=== PATIENT | female | born 1980 | race Caucasian/White ===

== ENCOUNTER 2017-02-22 23:36 | Observation (INO) ==
[2017-02-23] MEDS ORDERED: D5% in Lactated Ringers 1,000 ML IVC SCH (01:30)
--- NOTE | 2017-02-23 01:33 | OB/GYN History & Physical ---
Date of Encounter: 02/23/17 Time of Encounter: 01:30 Assessment and Plan (1) Incomplete Current visit: Yes Status: Acute Pt presents with bright red vaginal bleeding and u/s this pm still shows gest sac in uterus. D/w pt options. She states she doesn't want to do anymore cytotec and desires to proceed with suction d&c. Pt aware of operative risks and signed appropriate consent. History of Present Illness Chief complaint: vaginal bleeding HPI: Ms. Oliveira is a 37 year old female female dx'd 1 week ago with missed and she was given Cytotec. She thought she passed tissue last week, but then presented t ER on 02/21 with heavy vaginal bleeding again. Her HGB was 10.1 and she was discharged home after having u/s showing collapsing gestational sac. She presents today again with bright red vaginal bleeding and severe cramps. She denies fever or chills or orthostatic sx's. Past Med Surg Social Fam HX - Past Medical History Source: patient, old records reviewed Medical history: diabetes, GERD, hypertension Psychiatric history: no psych history - Past Surgical History Surgical History: cholecystectomy - Social History Smoking Status: Never smoker Smokeless Tobacco Status: No Alcohol use: none Drug use: none - Family History Father Family Member Ethnicity: Unknown Living Status: Still Living Hx Family Endocrine Disorder: Yes (diabetic) Medications and Allergies Amlodipine [Norvasc] 5 mg PO DAILY 07/29/15 [History] Insulin ASPART [NovoLOG] 2 - 15 unit SQ TIDWM PRN 07/29/15 [History] Metformin HCl [Fortamet] 1,000 mg PO BID 07/29/15 [History] Ranitidine HCl [Zantac] 150 mg PO BID 07/29/15 [History] Insulin DETEMIR [Levemir] 38 unit SQ HS 02/13/17 [History] LORazepam [Ativan] 1 mg PO BID #6 tablet 02/13/17 [Rx] Pnv #78/Iron Asp Gly/FA#1/Dha [Prenate Dha Softgel] 1 each PO 02/13/17 [History] Oxycodone HCl/Acetaminophen [Percocet 5-325 mg Tablet] 1 each PO Q6H #15 tablet 02/21/17 [Rx] Allergies naproxen Allergy (Verified 02/13/17 09:01) Rash Amoxicillin Adverse Reaction (Verified 02/13/17 09:01) Abdominal Pain Exam - Vital Signs Vital signs: Initial Vital Signs Temp Pulse Resp BP Pulse Ox 98.1 F 104 18 151/87 97 02/23/17 00:00 02/23/17 00:00 02/23/17 00:00 02/23/17 00:00 02/23/17 00:00 - Constitutional Constitutional: no acute distress - HEENT HEENT: EOMI, PERRL - Neck Neck exam: full ROM - Lungs Respiratory exam: CTAB - Cardiovascular Cardiovascular exam: RRR - Abdomen Abdomen: Present: bowel sounds normal - Extremities Extremities exam: full ROM Results All other labs normal.
[2017-02-23 02:42] LABS: Hematocrit 27.3 % (35.3-44.9); Hemoglobin 9.4 g/dL (11.5-15.4); Immature Platelets 4.9 % (1.1-6.1); Mean Corpuscular HGB Conc 34.4 g/dL (31.6-35.5); Mean Corpuscular Hemoglobin 29.6 pg (28.0-33.3); Mean Corpuscular Volume 85.8 fL (83.0-100.0); Mean Platelet Volume 10.9 fL (9.4-12.4); Red Blood Count 3.18 M/mcL (3.82-4.97); Red Cell Distribution Width 12.9 % (11.5-14.5)
[2017-02-23] MEDS ORDERED: Insulin LISPRO 300 UNITS/3 ML VIAL SQ STA (03:04)
[2017-02-23] MEDS ORDERED: Insulin LISPRO 300 UNITS/3 ML VIAL SQ ONE (03:07)
[2017-02-23] MEDS ORDERED: *HR* Propofol 200 MG/20 ML VIAL IVP ONE (03:37)
[2017-02-23] MEDS ORDERED: *HR* Midazolam HCl 2 MG/2 ML VIAL ONE (03:37)
[2017-02-23] MEDS ORDERED: *HR* FentaNYL (PF) 100 MCG/2 ML VIAL ONE (03:37)
[2017-02-23] MEDS ORDERED: Lidocaine -MPF 2% 2 ML VIAL ONE (03:38)
[2017-02-23] MEDS ORDERED: *HR* Rocuronium Bromide 50 MG/5 ML VIAL ONE (03:38)
--- NOTE | 2017-02-23 03:51 | Anesthesia Evaluation PreOp ---
Date of Encounter: 02/23/17 Time of Encounter: 03:48 - Past History Planned Operation: Suction D & C Cardiac History: HTN Pulmonary History: Denies Any Significant HX PATIENT OBSERVATION ASSISTANT History: Denies Any Significant HX Other Medical History: Diabetes Type II, GERD Anesthesia History: No Prior Anesthetic Complications, Past Anesthesia Alcohol Use: none Drug use: none Medications and Allergies Amlodipine [Norvasc] 5 mg PO DAILY 07/29/15 [History] Insulin ASPART [NovoLOG] 2 - 15 unit SQ TIDWM PRN 07/29/15 [History] Metformin HCl [Fortamet] 1,000 mg PO BID 07/29/15 [History] Ranitidine HCl [Zantac] 150 mg PO BID 07/29/15 [History] Insulin DETEMIR [Levemir] 38 unit SQ HS 02/13/17 [History] LORazepam [Ativan] 1 mg PO BID #6 tablet 02/13/17 [Rx] Pnv #78/Iron Asp Gly/FA#1/Dha [Prenate Dha Softgel] 1 each PO 02/13/17 [History] Oxycodone HCl/Acetaminophen [Percocet 5-325 mg Tablet] 1 each PO Q6H #15 tablet 02/21/17 [Rx] Allergies naproxen Allergy (Verified 02/13/17 09:01) Rash Amoxicillin Adverse Reaction (Verified 02/13/17 09:01) Abdominal Pain - Meds/Allergy Pre-op Review Medications Reviewed: Yes Allergies Reviewed: Yes Beta Blockers on Current Med List: No Anesthesia Results - Labs 02/23/17 02:28 Anesthesia Exam Vital Signs/O2 Sat, Most Current Temp Pulse Resp BP Pulse Ox 98.6 F 98 20 143/83 97 02/23/17 03:15 02/23/17 03:15 02/23/17 03:15 02/23/17 03:15 02/23/17 03:15 Height: 5'4'' Weight: 231 lbs/105 kg NPO (# of Hours): 8 Pain Scale: 5 Pain Scale Used: Numeric (1 - 10) - HEENT Pupil (Motor): EOMI Mallampati: II Teeth: Normal (chipped upper front tooth) Oral Opening: Greater than 3 - PATIENT OBSERVATION ASSISTANT LOC: Oriented PATIENT OBSERVATION ASSISTANT Motor: Normal RUE, Normal LUE, Normal RLE, Normal LLE, Normal Face PATIENT OBSERVATION ASSISTANT Sensory: Normal: RUE, LUE, RLE, LLE, Face - Cardiac Rhythm: Regular Murmur: None - Pulmonary Breath Sounds: bilateral Clear Respiratory Effort: Symmetrical Anesthesia Assess/Plan ASA Score: 3 Modified Jong Scale for Level of Consciousness: Cooperative, oriented, and tranquil Anesthetic Plan: General Monitoring Plan: Standard Monitors Recovery Plan: PACU
[2017-02-23] MEDS ORDERED: *HR* Morphine 2 MG/ML SYRINGE IVP PRN (03:55)
[2017-02-23] MEDS ORDERED: Methylergonovine 0.2 MG/ML AMPUL IM ONE (04:12)
[2017-02-23] MEDS ORDERED: Clindamycin 900 MG/50 ML 900 MG/50 ML IV.SOLN IVPB ONE (04:12)
[2017-02-23] MEDS ORDERED: Dexamethasone 4 MG/ML VIAL ONE (04:29)
[2017-02-23] MEDS ORDERED: Ondansetron 4 MG/2 ML VIAL ONE (04:29)
[2017-02-23] MEDS ORDERED: *HR* HYDROcodone/Acet 5/325 mg TABLET PO ONE (04:51)
--- NOTE | 2017-02-23 04:55 | OB/GYN Procedure Note ---
OB-KNIT GOODS WASHER: Procedure - Diagnosis Date of procedure: 02/23/17 Pre-op diagnosis: Incomplete Post-op diagnosis: same - Procedure Procedure: Suction D&C Surgeon: Nikolas Rothman Anesthesia Type: General Estimated blood loss (cc): 100 Fluids: crystalloid Procedure Complications: None Specimens collected: Products of Conception Disposition: PACU Findings: Gest sac intact in vagina, placental tissue and clot in uterus Narrative: Patient is a 37-year-old 2 para 1 female 6 weeks gestation diagnosed last week with missed at approximately 6 weeks. She elected to attempt needs approximately induction of . She has had significant bleeding from this week went to the emergency room last evening was diagnosed with mild anemia and collapsing gestational sac. She comes back and this evening with heavy bleeding and severe cramps and requests definitive surgical management. She was were operative risks and signed appropriate consent. Description of procedure: Patient was taken operating room where general anesthesia was administered. She was prepped and draped in usual sterile fashion ". Cervix was visualized and grasped with single-tooth tenaculum. Y did look inside the vagina with the speculum the gestational sac was noted to be intact so that the external cervical os this was grasped and removed intact from forceps. The cervix was already dilated 8 mm suction curet was passed several times to reveal typical placental tissue gentle sharp curettage was performed and uterine cavity was smooth. In gentle curettage performed with minimal residual tissue this point was removed hemostasis was assured patient was awakened taken to recovery in good condition.
--- NOTE | 2017-02-23 04:58 | Discharge Summary ---
Outpatient Proc Discharge Plan - Plan Prescriptions: Ibuprofen [Motrin] 600 mg PO Q6HR PRN #40 tab PRN Reason: post op pain Oxycodone HCl/Acetaminophen [Percocet 5-325 mg Tablet] 1 each PO Q6H PRN #20 tablet PRN Reason: post op pain Home Medications: Amlodipine [Norvasc] 5 mg PO DAILY 07/29/15 [History] Insulin ASPART [NovoLOG] 2 - 15 unit SQ TIDWM PRN 07/29/15 [History] Metformin HCl [Fortamet] 1,000 mg PO BID 07/29/15 [History] Ranitidine HCl [Zantac] 150 mg PO BID 07/29/15 [History] Insulin DETEMIR [Levemir] 38 unit SQ HS 02/13/17 [History] LORazepam [Ativan] 1 mg PO BID #6 tablet 02/13/17 [Rx] Pnv #78/Iron Asp Gly/FA#1/Dha [Prenate Dha Softgel] 1 each PO 02/13/17 [History] Ibuprofen [Motrin] 600 mg PO Q6HR PRN #40 tab 02/23/17 [Rx] Oxycodone HCl/Acetaminophen [Percocet 5-325 mg Tablet] 1 each PO Q6H PRN #20 tablet 02/23/17 [Rx]
[2017-02-23] MEDS ORDERED: Ringers Solution, Lactated 1,000 ML ONE (05:07)
--- NOTE | 2017-02-23 05:24 | Anesthesia Evaluation Post Op ---
Date of Encounter: 02/23/17 Time of Encounter: 05:23 - Vital Signs Vital Signs: Vital Signs/O2 Sat, Most Current Temp Pulse Resp BP Pulse Ox 97.6 F 116 20 154/96 95 02/23/17 04:59 02/23/17 05:19 02/23/17 05:19 02/23/17 05:19 02/23/17 05:19 - Lungs Lungs: Clear Ascult./Percussion - Airway Airway: Non-obstructed - Cardiovascular Regular Rate - Mental Status Mental Status: Alert & Oriented, Answers Appropriately - Pain Pain Scale: 0 Pain Scale used: Numeric (1 - 10) - Nausea Vomiting Nausea Vomiting: Not Present - Hydration Hydration: Ice chips, Has not voided - Discharge PostOp Status: Transfer Patient to floor
[2017-02-23 06:44] VITALS: BP 161/90
== END 2017-02-23 07:15 | disposition home or self-care (01) ==
LOC: 1NENUOBS
PROVIDERS: ADMIT Obstetrics & Gynecology; ATTEND Obstetrics & Gynecology

== ENCOUNTER 2017-07-25 17:42 | Inpatient (IN) ==
--- NOTE | 2017-07-25 18:21 | Emergency Department Note ---
Disposition Clinical Impression: Diverticulitis Qualifiers: Diverticulitis site: large intestine Diverticulitis bleeding: without bleeding Diverticulitis complication: without perforation or abscess Qualified Code(s): K57.32 - Diverticulitis of large intestine without perforation or abscess without bleeding Disposition: Admitted As Inpatient Condition: Fair Referrals: Maria Del Carmen Hernandez MD [Primary Care Provider] - Forms: Work/School Release, ED Satisfaction Letter Abdominal Pain HPI - General Chief Complaint: ED Abdominal Pain Stated Complaint: Abdominal Pain Time Seen by Provider: 07/25/17 17:47 Source: patient, EMS Vital Signs Reviewed: Yes - History of Present Illness HPI Narrative: Patient is a 37-year-old female past medical history of hypertension, diabetes, GERD presented to the ED today after previously being diagnosed yesterday with diverticulitis with new pain on the left side and fever. Patient states that last week she was having low back pain and stomach pain intermittently. Yesterday the pain never went away and she came in to the ED and was diagnosed with diverticulitis. She is sent home with Cipro, Flagyl, Bentyl, Hydrocodeine and Zofran. Patient states she woke up last night in a sweat. She said that when she went to her primary care physician today she had a fever of 100 degrees and they said that she needed to go to the ED today. EMS documented a fever of 100.3F. She states that her pain as an 8 out of 10. It is not aggravated by food. She is not hungry ago and has not eaten anything. Movement does not be changed. Patient states that she cannot get comfortable in one position. Patient has had diffuse weakness, body aches, dizziness, nausea without vomiting. She is not had a bowel movement since yesterday but has been passing gas. Denies melena or hematochezia. Of note she has a diffuse rash on her extremities and trunk the patient has recently changed detergents and believes that is the cause. Pain Scale: 8 - Related Data Home Medications Medication Instructions Recorded Confirmed Amlodipine [Norvasc] 5 mg PO DAILY 07/29/15 08/28/16 Insulin ASPART [NovoLOG] 2 - 15 unit SQ TIDWM PRN 07/29/15 08/28/16 Metformin HCl [Fortamet] 1,000 mg PO BID 07/29/15 08/28/16 Ranitidine HCl [Zantac] 150 mg PO BID 07/29/15 08/28/16 Insulin DETEMIR [Levemir] 38 unit SQ HS 02/13/17 02/13/17 Pnv #78/Iron Asp Gly/FA#1/Dha 1 each PO 02/13/17 [Prenate Dha Softgel] Previous Rx's Medication Instructions Recorded LORazepam [Ativan] 1 mg PO BID #6 tablet 02/13/17 Ibuprofen [Motrin] 600 mg PO Q6HR PRN #40 tab 02/23/17 Oxycodone HCl/Acetaminophen 1 each PO Q6H PRN #20 tablet 02/23/17 [Percocet 5-325 mg Tablet] Ciprofloxacin [Cipro] 500 mg PO BID #14 tablet 07/24/17 Dicyclomine [Bentyl] 10 mg PO QID PRN #40 capsule 07/24/17 HYDROcodone/Acet 5/325 mg [[place] 1 tab PO Q4H PRN #20 tab 07/24/17 5-325 mg] Ondansetron ODT [Zofran ODT] 4 mg SL Q6HR PRN #14 tab.rapdis 07/24/17 metroNIDAZOLE [Flagyl] 500 mg PO TID #21 tablet 07/24/17 Allergies Allergy/AdvReac Type Severity Reaction Status Date / Time naproxen Allergy Rash Verified 02/13/17 09:01 Amoxicillin AdvReac Abdominal Verified 02/13/17 09:01 Pain All systems ED: reviewed and negative except as stated. Review of Systems: As Per HPI Cardiovascular: Denies: chest pain Gastrointestinal: Reports: abdominal pain, nausea. Denies: vomiting, diarrhea, constipation, hematemesis, melena, hematochezia Integumentary: Reports: rash Abdominal Pain PMH - Past Medical History Medical history: Reports: diabetes, GERD, hypertension Female Surgical History: Reports: cholecystectomy, Tonsillectomy HAND HEEL SEAT FITTER history: Reports: no HAND HEEL SEAT FITTER history Psychiatric history: Reports: no psych history - Social History Smoking status: Never smoker Alcohol use: Reports: none Drug use: Reports: none Physical Exam Constitutional: Alert, in no acute distress, well nourished, well developed. Head: Normocephalic, atraumatic, normal contour and symmetric, no masses, lesions or scars EENT: PERRL, EOMI, moist mucous membranes, no exudates or lesions Heart: Normal, regular rate and rhythm, no murmurs Lungs: Clear to auscultation, no wheezes, rales, or rhonchi Abdomen: abdomen is tender left lower and upper quadrant and left flank, Soft, nondistended, and no masses palpable, bowel sounds present and normal, no guarding or rigidity. Extremities: No clubbing, cyanosis, or edema, radial pulse +2/4, capillary refill <2sec. Skin: diffuse maculopapular rash on extremities and trunk, Skin warm and dry,, no jaundice Neurologic: Cranial nerves II through XII grossly intact, no focal deficits, strength within normal limits in all extremities Psych: Cooperative with exam, good eye contact, cognitive function intact, judgment good insight good, speech clear, thought process logical, and goal directed - General General appearance: alert, in no apparent distress Course Course Narrative: CT of the abdomen and pelvis yesterday showed diverticulitis. Patient failed outpatient treatment and now is presenting with new onset of fever and worsening pain on the left side. 1L bolus of NS was given. One dose of Zosyn 3.375mg IV, Dilaudid 1mg, and Zofran 4mg given. Dilaudid decreased pain significantly and Zofran alleviated nausea completely. WBC 11.2 today ( yesterday 12.2), but due to patients worsening symptoms patient admitted to the hospital for IV antibiotics. Crissy Chavez was notified and accepted admission. Vital Signs Temperature 98.3 F 07/25/17 17:43 Pulse Rate 104 07/25/17 17:43 Respiratory Rate 18 07/25/17 17:43 Blood Pressure 165/106 07/25/17 17:43 O2 Sat by Pulse Oximetry 97 07/25/17 17:43 Temperature 98.3 F 07/25/17 17:43 Pulse Rate 104 07/25/17 17:43 Respiratory Rate 18 07/25/17 17:43 Blood Pressure 165/106 07/25/17 17:43 O2 Sat by Pulse Oximetry 97 07/25/17 17:43 Oxygen Delivery Oxygen Delivery Room Air Abdominal Pain - Lab Data Lab results reviewed: Yes I reviewed the patient's lab results. Lab results narrative: All Lab Results (24 Hours) 07/25/17 07/25/17 Range/Units 18:22 18:22 WBC 11.2 H (4.3-11.1) K/mcL RBC 4.81 (3.82-4.97) M/mcL Hgb 11.3 L (11.5-15.4) g/dL Hct 36.2 (35.3-44.9) % MCV 75.3 L (83.0-100.0) fL MCH 23.5 L (28.0-33.3) pg MCHC 31.2 L (31.6-35.5) g/dL RDW 15.7 H (11.5-14.5) % Plt Count 297 (140-400) K/mcL MPV 10.4 (9.4-12.4) fL Immature Gran % 0.4 (0-4) % Seg Neutrophils % 75.0 % Lymphocytes % 14.4 % Monocytes % 9.4 % Eosinophils % 0.5 % Basophils % 0.3 % Neutrophils # 8.4 (1.6-8.9) K/mcL Lymphocytes # 1.6 (0.6-4.6) K/mcL Monocytes # 1.1 (0.0-1.3) K/mcL Eosinophils # 0.1 (0.0-0.6) K/mcL Basophils # 0.0 (0.0-0.2) K/mcL Sodium 136 (136-145) mEq/L Potassium 3.6 (3.5-4.5) mEq/L Chloride 101 (98-109) mEq/L Carbon Dioxide 26 (19-29) mEq/L BUN 8 (7-20) mg/dL Creatinine 0.74 (0.57-1.11) mg/dL Est GFR ( Amer) > 60 (> 60) Est GFR (Non-Af Amer) > 60 (> 60) BUN/Creatinine Ratio 11 (6-26) Glucose 162 H (70-99) mg/dL Calculated Osmolality 284 (280-300) Calcium 9.3 (8.6-10.8) mg/dL Total Bilirubin 0.4 (0.2-1.2) mg/dL AST 20 (5-34) Units/L ALT 25 (0-55) Units/L Alkaline Phosphatase 77 (38-126) Units/L Serum Total Protein 7.5 (6.0-8.3) g/dL Albumin 3.5 (3.5-5.0) g/dL Globulin 4.0 H (2.4-3.5) g/dL Albumin/Globulin Ratio 0.9 L (1.1-2.2) Result diagrams: 07/25/17 18:22 07/25/17 18:22 Lab Results 07/25/17 07/25/17 Range/Units 18:22 18:22 WBC 11.2 H (4.3-11.1) K/mcL RBC 4.81 (3.82-4.97) M/mcL Hgb 11.3 L (11.5-15.4) g/dL Hct 36.2 (35.3-44.9) % MCV 75.3 L (83.0-100.0) fL MCH 23.5 L (28.0-33.3) pg MCHC 31.2 L (31.6-35.5) g/dL RDW 15.7 H (11.5-14.5) % Plt Count 297 (140-400) K/mcL MPV 10.4 (9.4-12.4) fL Immature Gran % 0.4 (0-4) % Seg Neutrophils % 75.0 % Lymphocytes % 14.4 % Monocytes % 9.4 % Eosinophils % 0.5 % Basophils % 0.3 % Neutrophils # 8.4 (1.6-8.9) K/mcL Lymphocytes # 1.6 (0.6-4.6) K/mcL Monocytes # 1.1 (0.0-1.3) K/mcL Eosinophils # 0.1 (0.0-0.6) K/mcL Basophils # 0.0 (0.0-0.2) K/mcL Sodium 136 (136-145) mEq/L Potassium 3.6 (3.5-4.5) mEq/L Chloride 101 (98-109) mEq/L Carbon Dioxide 26 (19-29) mEq/L BUN 8 (7-20) mg/dL Creatinine 0.74 (0.57-1.11) mg/dL Est GFR ( Amer) > 60 (> 60) Est GFR (Non-Af Amer) > 60 (> 60) BUN/Creatinine Ratio 11 (6-26) Glucose 162 H (70-99) mg/dL Calculated Osmolality 284 (280-300) Calcium 9.3 (8.6-10.8) mg/dL Total Bilirubin 0.4 (0.2-1.2) mg/dL AST 20 (5-34) Units/L ALT 25 (0-55) Units/L Alkaline Phosphatase 77 (38-126) Units/L Serum Total Protein 7.5 (6.0-8.3) g/dL Albumin 3.5 (3.5-5.0) g/dL Globulin 4.0 H (2.4-3.5) g/dL Albumin/Globulin Ratio 0.9 L (1.1-2.2) Attestation Statement - Attestation Attestation: I examined this patient and my medical decision-making was reviewed with the Resident Physician. I agree with the documented findings, disposition and treatment plan as described except to the extent set forth below. I had face-to- face time with the patient. This is a 37-year-old diabetic who came in with left lower quadrant pain yesterday. CT scan shows acute diverticular disease. Patient states today her pain has gotten significantly worse with fevers. Physical examination she had tenderness left lower quadrant without guarding or rebound. White count today is actually somewhat better however her symptoms are worse and she has running a fever now. We will admit her for IV antibiotics. Consultation obtained with the hospitalist.
[2017-07-25] MEDS ORDERED: Piperacillin/Tazobactam 3.375 GM in D5% in Water (Mini-Bag+) 100 ML IVPB ONE (18:24)
[2017-07-25] MEDS ORDERED: 0.9 % Sodium Chloride 1,000 ML IVC ONE (18:24)
[2017-07-25 18:33] LABS: Basophils % 0.3 %; Eosinophils # 0.1 K/mcL (0.0-0.6); Eosinophils % 0.5 %; Hematocrit 36.2 % (35.3-44.9); Hemoglobin 11.3 g/dL (11.5-15.4); Immature Granulocytes % 0.4 % (0-4); Lymphocytes # 1.6 K/mcL (0.6-4.6); Lymphocytes % 14.4 %; Mean Corpuscular HGB Conc 31.2 g/dL (31.6-35.5); Mean Corpuscular Hemoglobin 23.5 pg (28.0-33.3); Mean Corpuscular Volume 75.3 fL (83.0-100.0); Mean Platelet Volume 10.4 fL (9.4-12.4); Monocytes # 1.1 K/mcL (0.0-1.3); Monocytes % 9.4 %; Neutrophils # 8.4 K/mcL (1.6-8.9); Platelet Count 297 K/mcL (140-400); Red Blood Count 4.81 M/mcL (3.82-4.97); Red Cell Distribution Width 15.7 % (11.5-14.5)
[2017-07-25] MEDS ORDERED: Ondansetron 4 MG/2 ML VIAL IVP PRN ×2 (18:36→19:29)
[2017-07-25] MEDS ORDERED: *HR* HYDROmorphone (PF) 1 MG/ML SYRINGE IVP ONE (18:36)
[2017-07-25 18:46] LABS: Alanine Aminotransferase 25 Units/L (0-55); Albumin 3.5 g/dL (3.5-5.0); Albumin/Globulin Ratio 0.9 (1.1-2.2); Alkaline Phosphatase 77 Units/L (38-126); Aspartate Amino Transferase 20 Units/L (5-34); BUN/Creatinine Ratio 11 (6-26); Bilirubin,Total 0.4 mg/dL (0.2-1.2); Blood Urea Nitrogen 8 mg/dL (7-20); Calcium 9.3 mg/dL (8.6-10.8); Carbon Dioxide 26 mEq/L (19-29); Chloride 101 mEq/L (98-109); Glucose 162 mg/dL (70-99); Osmolality,Calculated 284 (280-300); Potassium 3.6 mEq/L (3.5-4.5); Sodium 136 mEq/L (136-145); Total Protein 7.5 g/dL (6.0-8.3); eGFR For African Americans > 60 (> 60); eGFR For Non-African Americans > 60 (> 60)
[2017-07-25] MEDS ORDERED: Dextrose Gel 15 GM PO PRN (19:33)
[2017-07-25] MEDS ORDERED: D5% in Water 1,000 ML IVC PRN (19:33)
[2017-07-25] MEDS ORDERED: *HR* Dextrose 50 % in Water (Syg) 50 ML SYRINGE IVP PRN (19:33)
--- NOTE | 2017-07-25 19:50 | Internal Med History&Physical ---
<Crissy Chavez - Last Filed: 07/25/17 22:05> Date of Encounter: 07/25/17 Time of Encounter: 19:45 Assessment and Plan (1) Diverticulitis Current visit: Yes Status: Acute 1 1 patient was seen yesterday in the emergency department for abdominal pain. She was diagnosed with diverticulitis and was discharged home from [facility] and Flagyl, hydrocodone then told and Zofran. Overnight the patient continued to have abdominal pain as well as nausea she experienced fevers and chills. She resumed her primary care physician attention at temperature of 100. LFTs are negative lipase within normal limits Her white count is down to 11.2. Oral medications have been stopped. We will continue with IV Zosyn. 2 IV Zofran for nausea 3 we will continue with IV fluids overnight 4. Nothing by mouth for now and advance to clear liquids as tolerated 5 dilaudid as needed for pain Qualifiers: Diverticulitis site: large intestine Diverticulitis bleeding: without bleeding Diverticulitis complication: without perforation or abscess Qualified Code(s): K57.32 - Diverticulitis of large intestine without perforation or abscess without bleeding (2) HTN (hypertension) Current visit: No Status: Chronic 1 hydralazine as needed IV for hypertension. Once tolerating clear liquids we will resume oral medications Qualifiers: Hypertension type: essential hypertension Qualified Code(s): I10 - Essential (primary) hypertension (3) Diabetes Current visit: No Status: Chronic 1 accucheck every 6 hours while nothing by mouth give half of her Basal and add sliding scale insulin 2 we will hold oral medications for now and resume upon discharge Qualifiers: Diabetes mellitus type: type 2 Diabetes mellitus complication status: without complication Diabetes mellitus care home insulin use: with care home use Qualified Code(s): E11.9 - Type 2 diabetes mellitus without complications ; 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 Oliveira is a 37 year old female past medical history of hypertension diabetes GERD. Patient [facility] yesterday with complaints of abdominal pain. Abdominal workup was completed and CT did reveal some diverticulitis. She was sent home with Cipro Flagyl Bentyl hydrocodone and Zofran. She did wake last night and was experiencing chills and diaphoresis. She continued to experience sharp abdominal pain radiating across her lower abdomen to her left side as well as low back pain. She has been nauseated however she denies any vomiting diarrhea melena hematochezia. She has been passing gas but she has not had a bowel movement since yesterday. Of note she has a diffuse rash on her extremities and trunk which she attributes to recent change in her laundry detergent. She followed up with her primary care physician today she did have a low-grade temperature fever of 100.3. She was advised to go to emergency department for evaluation. In the ER lab work did reveal a day after meals of 11.2 which was down from yesterday. Rest of lab work was unremarkable. She was afebrile and slightly hypertensive. She was given IV fluids pain medication and Zosyn. She has been admitted for further workup evaluation. Presently patient is complaining of cramp-like abdominal pain across her abdomen to her left flank. She does have slight diffuse tenderness across abdomen palpation. Abdomen is not distended She denies any chest pain shortness of breath at this time. Her lung sounds are clear heart sounds are regular S1 and S2 with no rubs clicks, murmurs noted history of pedal edema. She is hemodynamically stable at this time. Reviewed his case with Dr Schmidt who agrees with plan. Past Med Surg Social Fam HX - Past Medical History Medical history: diabetes, GERD, hypertension Psychiatric history: no psych history - Past Surgical History Surgical History: cholecystectomy - Social History Smoking Status: Never smoker Smokeless Tobacco Status: No Alcohol use: none Drug use: none - Family History Father Family Member Ethnicity: Unknown Living Status: Still Living Hx Family Endocrine Disorder: Yes (diabetic) Internal Medicine - H&P: Meds Amlodipine [Norvasc] 5 mg PO DAILY 07/29/15 [History] Insulin ASPART [NovoLOG] 10 unit SQ TIDAC 07/29/15 [History] Metformin HCl [Fortamet] 2,000 mg PO QPM 07/29/15 [History] Ranitidine HCl [Zantac] 150 mg PO BID 07/29/15 [History] Insulin DETEMIR [Levemir] 40 unit SQ HS 02/13/17 [History] Ciprofloxacin [Cipro] 500 mg PO BID #14 tablet 07/24/17 [Rx] Dicyclomine [Bentyl] 10 mg PO QID PRN #40 capsule 07/24/17 [Rx] HYDROcodone/Acet 5/325 mg [[place] 5-325 mg] 1 tab PO Q4H PRN #20 tab 07/24/17 [Rx ] Ondansetron ODT [Zofran ODT] 4 mg SL Q6HR PRN #14 tab.rapdis 07/24/17 [Rx] metroNIDAZOLE [Flagyl] 500 mg PO TID #21 tablet 07/24/17 [Rx] 3 Allergy/AdvReac Type Severity Reaction Status Date / Time naproxen Allergy Rash Verified 02/13/17 09:01 Amoxicillin AdvReac Abdominal Verified 02/13/17 09:01 Pain All Systems PM: A 10-system review of systems was performed and is negative for pertinent findings except as documented above in the HPI. - Constitutional Constitutional: no chills, no fever(s), no night sweats - EENT Eyes: no change in vision, no discharge, no pain, no photophobia Ears: no ear discharge, no ear pain, no tinnitus Nose, mouth and throat: no dysphagia, no nasal discharge, no neck pain, no sore throat - Cardiovascular Cardiovascular ROS IM: no chest pain, no diaphoresis, no dyspnea, no lightheadedness, no palpitations, no syncope - Respiratory Respiratory: no cough, no dyspnea, no wheezing, no excessive phlegm production - Gastrointestinal Gastrointestinal: abdominal pain, nausea, no diarrhea, no hematemesis, no hematochezia, no melena, no vomiting - Genitourinary Genitourinary: no change in urinary stream, no dysuria, no flank pain, no hematuria - Musculoskeletal Musculoskeletal ROS IM: no numbness, no tingling - Integumentary Integumentary IM: rash - Neurological Neurological ROS: no confusion, no convulsions, no focal weakness, no numbness, no tingling, no tremor(s) - Hematologic/Lymphatic Hematologic/Lymphatic: no easy bruising - Constitutional Vitals: Temp Pulse Resp BP Pulse Ox 98.3 F 104 18 165/106 97 07/25/17 17:43 07/25/17 17:43 07/25/17 17:43 07/25/17 17:43 07/25/17 17:43 General appearance: Present: A&O X 3, obese, answers questions appropriately - Head Head exam: Present: atraumatic, normocephalic - Eye Eye exam: Present: PERRL, conjuntiva pink, sclera anicteric - Neck Neck exam general surgery: Present: supple, trachea midline. Absent: lymphadenopathy - Respiratory Respiratory exam: Present: CTAB. Absent: accessory muscle use, rales, rhonchi, wheezes - Cardiovascular Cardiovascular exam: Present: RRR, +S1, +S2. Absent: diastolic murmur, gallop, rubs, systolic murmur - GI/Abdominal GI/Abdominal exam: Present: normal bowel sounds, soft, tenderness, no peritoneal signs. Absent: distended - Extremities Exam Extremities exam: Present: warm, radial pulses palpable and symmetrical. Absent : calf tenderness, cyanotic, pedal edema - Neurological Exam Neurological exam: Present: CN II-XII intact, oriented X3, no focal deficits. Absent: pronater drift, facial droop, speech deficit - Skin Skin exam: Present: dry, intact Internal Med - H&P Results - Labs CBC & Chem 7: 07/25/17 18:22 07/25/17 18:22 Labs: Short CBC 07/25/17 Range/Units 18:22 WBC 11.2 H (4.3-11.1) K/mcL Hgb 11.3 L (11.5-15.4) g/dL Hct 36.2 (35.3-44.9) % Plt Count 297 (140-400) K/mcL Neutrophils # 8.4 (1.6-8.9) K/mcL BMP 07/25/17 18:22 Sodium 136 Potassium 3.6 Chloride 101 Carbon Dioxide 26 BUN 8 Creatinine 0.74 Glucose 162 H Calcium 9.3 Liver Function 07/25/17 Range/Units 18:22 Total Bilirubin 0.4 (0.2-1.2) mg/dL AST 20 (5-34) Units/L ALT 25 (0-55) Units/L Alkaline Phosphatase 77 (38-126) Units/L Albumin 3.5 (3.5-5.0) g/dL <Bertram Schmidt - Last Filed: 07/25/17 23:27> Date of Encounter: 07/25/17 Internal Medicine - H&P: HPI History of present illness: Ms. Oliveira is a 37 year old female All Systems PM: A 10-system review of systems was performed and is negative for pertinent findings except as documented above in the HPI. - Constitutional Vitals: Temp Pulse Resp BP Pulse Ox 98.6 F 91 16 144/81 96 07/25/17 21:27 07/25/17 21:27 07/25/17 21:27 07/25/17 21:27 07/25/17 21:27 Internal Med - H&P Results - Labs CBC & Chem 7: 07/25/17 18:22 07/25/17 18:22 - Attending Attestation I independently obtained history and examined this patient and my medical decision-making was reviewed with the nurse practitioner, Crissy Chavez. I agree with the documented findings, disposition and treatment plan as described. My findings are summarized below: Patient presented to the hospital with abdominal pain, nausea and decreased oral intake. She was recently diagnosed with diverticulitis. She started treatment with oral antibiotics outpatient however her symptoms worsened. On exam she is in no acute distress. Abdomen is soft tender to deep palpation in left lower quadrant and right lower quadrant. Plan: We will admit the patient and treat her for diverticulitis with IV Zosyn IV fluids and pain control. She is at high risk for morbidity, mortality and complications to to treatment with IV controlled substances.
[2017-07-25] MEDS ORDERED: NON-FORMULARY MEDICATION 1 EACH EACH (Insulin Detemir 20 UNIT) SQ SCH (22:00)
[2017-07-25] MEDS: 0.9 % Sodium Chloride 1,000 ML IVC SCH (22:01)
[2017-07-25] MEDS: Insulin DETEMIR 100 UNIT/ML X5UNITS SQ SCH (22:52)
[2017-07-25] MEDS ORDERED: Naloxone 0.4 MG/ML INJ IVP PRN (23:00)
[2017-07-26] MEDS: Insulin LISPRO 300 UNITS/3 ML VIAL SQ SCH ×4 (01:04→18:23)
[2017-07-26] MEDS: *HR* HYDROmorphone (PF) 1 MG/ML SYRINGE IVP PRN ×3 (01:08→21:58)
[2017-07-26 05:03] LABS: Basophils % 0.4 %; Eosinophils # 0.1 K/mcL (0.0-0.6); Hematocrit 32.5 % (35.3-44.9); Hemoglobin 9.8 g/dL (11.5-15.4); Immature Granulocytes % 0.5 % (0-4); Lymphocytes # 1.7 K/mcL (0.6-4.6); Lymphocytes % 20.4 %; Mean Corpuscular HGB Conc 30.2 g/dL (31.6-35.5); Mean Corpuscular Hemoglobin 23.1 pg (28.0-33.3); Mean Corpuscular Volume 76.7 fL (83.0-100.0); Monocytes # 0.7 K/mcL (0.0-1.3); Neutrophils # 5.7 K/mcL (1.6-8.9); Platelet Count 271 K/mcL (140-400); Red Blood Count 4.24 M/mcL (3.82-4.97); Red Cell Distribution Width 15.8 % (11.5-14.5); Segmented Neutrophils % 69.7 %
[2017-07-26 05:15] LABS: BUN/Creatinine Ratio 10 (6-26); Blood Urea Nitrogen 7 mg/dL (7-20); Calcium 8.4 mg/dL (8.6-10.8); Carbon Dioxide 26 mEq/L (19-29); Chloride 103 mEq/L (98-109); Glucose 144 mg/dL (70-99); Magnesium 1.9 mg/dL (1.6-2.6); Osmolality,Calculated 283 (280-300); Potassium 3.7 mEq/L (3.5-4.5); eGFR For African Americans > 60 (> 60); eGFR For Non-African Americans > 60 (> 60)
[2017-07-26 05:16] LABS: Sodium 136 mEq/L (136-145)
[2017-07-26] MEDS: Piperacillin/Tazobactam 3.375 GM in D5% in Water (Mini-Bag+) 100 ML IVPB SCH ×3 (06:03→18:19)
[2017-07-26] MEDS: *HR* Enoxaparin 40 MG/0.4 ML SYRINGE SQ SCH (06:04)
[2017-07-26] MEDS: 0.9 % Sodium Chloride 1,000 ML IVC SCH (07:53)
--- NOTE | 2017-07-26 14:58 | Internal Med Progress Note ---
Date of Encounter: 07/26/17 Time of Encounter: 08:10 - Assessment and plan (1) Diverticulitis Current Visit: Yes Status: Acute Assessment and plan: Patient with acute diverticulitis involving the descending colon. Improving clinically. Will start patient on clear liquids and advance diet as tolerated. Continue IV antibiotics. She does remain at risk for complications including perforation and abscess formation. Monitor vital signs closely. Qualifiers: Diverticulitis site: large intestine Diverticulitis bleeding: without bleeding Diverticulitis complication: without perforation or abscess Qualified Code(s): K57.32 - Diverticulitis of large intestine without perforation or abscess without bleeding (2) Diabetes Current Visit: Yes Status: Chronic Assessment and plan: Blood sugars are elevated today. 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 Qualifiers: Hypertension type: essential hypertension Qualified Code(s): I10 - Essential (primary) hypertension (4) DVT prophylaxis Current Visit: Yes Status: Acute Assessment and plan: On subcutaneous Lovenox - Subjective Interval history: Patient continues to have lower abdominal pain but improving compared to yesterday. No longer having any nausea or vomiting. No diarrhea. No hematemesis or melena/hematochezia. No fever reported. - Constitutional Vitals: Temp Pulse Resp BP Pulse Ox 98 F 82 15 120/76 97 07/26/17 11:21 07/26/17 11:21 07/26/17 11:21 07/26/17 11:21 07/26/17 11:21 General appearance: Present: A&O X 3, obese, answers questions appropriately - Neck Neck exam general surgery: Present: supple, trachea midline. Absent: lymphadenopathy - Respiratory Respiratory exam: Present: CTAB. Absent: accessory muscle use, rales, rhonchi, wheezes - Cardiovascular Cardiovascular exam: Present: RRR, +S1, +S2. Absent: diastolic murmur, gallop, rubs, systolic murmur - GI/Abdominal GI/Abdominal exam: Present: normal bowel sounds, soft, tenderness (Lower abdominal), no peritoneal signs. Absent: distended - Extremities Exam Extremities exam: Present: warm, radial pulses palpable and symmetrical. Absent : calf tenderness, cyanotic, pedal edema Internal Medicine: Result - Labs CBC & Chem 7: 07/26/17 04:19 07/26/17 04:19 Labs: Short CBC 07/26/17 Range/Units 04:19 WBC 8.2 (4.3-11.1) K/mcL Hgb 9.8 L D (11.5-15.4) g/dL Hct 32.5 L (35.3-44.9) % Plt Count 271 (140-400) K/mcL Neutrophils # 5.7 (1.6-8.9) K/mcL BMP 07/26/17 04:19 Sodium 136 Potassium 3.7 Chloride 103 Carbon Dioxide 26 BUN 7 Creatinine 0.71 Glucose 144 H Calcium 8.4 L Consult Discharge Plan - Plan Referrals: Maria Del Carmen Hernandez MD [Primary Care Provider] -
[2017-07-26] MEDS: Insulin DETEMIR 100 UNIT/ML X5UNITS SQ SCH (21:47)
[2017-07-26] MEDS: Famotidine 20 MG TABLET PO SCH (21:47)
[2017-07-27] MEDS: Piperacillin/Tazobactam 3.375 GM in D5% in Water (Mini-Bag+) 100 ML IVPB SCH ×2 (00:28→08:02)
[2017-07-27] MEDS: *HR* Enoxaparin 40 MG/0.4 ML SYRINGE SQ SCH (06:29)
[2017-07-27 07:38] VITALS: BP 121/80
[2017-07-27] MEDS: Famotidine 20 MG TABLET PO SCH (08:01)
[2017-07-27] MEDS: Insulin LISPRO 300 UNITS/3 ML VIAL SQ SCH (08:03)
[2017-07-27] MEDS ORDERED: *HR* HYDROcodone/Acet 5/325 mg TABLET PO PRN (08:06)
--- NOTE | 2017-07-27 10:36 | Discharge Summary ---
Date of Encounter: 07/27/17 Time of Encounter: 08:20 - Discharge Diagnosis (1) Diverticulitis Priority: Primary Status: Acute Qualifiers: Diverticulitis site: large intestine Diverticulitis bleeding: without bleeding Diverticulitis complication: without perforation or abscess Qualified Code(s): K57.32 - Diverticulitis of large intestine without perforation or abscess without bleeding (2) Diabetes Priority: Secondary Status: Chronic Qualifiers: Diabetes mellitus type: type 2 Diabetes mellitus complication status: without complication Diabetes mellitus correction insulin use: with correction use Qualified Code(s): E11.9 - Type 2 diabetes mellitus without complications ; 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 of 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 (3) HTN (hypertension) Priority: Secondary Status: Chronic Qualifiers: Hypertension type: essential hypertension Qualified Code(s): I10 - Essential (primary) hypertension (4) DVT prophylaxis Priority: Secondary Status: Acute - Discharge Medications Home Medications: Amlodipine [Norvasc] 5 mg PO DAILY 07/29/15 [History] Insulin ASPART [NovoLOG] 10 unit SQ TIDAC 07/29/15 [History] Metformin HCl [Fortamet] 2,000 mg PO QPM 07/29/15 [History] Ranitidine HCl [Zantac] 150 mg PO BID 07/29/15 [History] Insulin DETEMIR [Levemir] 40 unit SQ HS 02/13/17 [History] Ciprofloxacin [Cipro] 500 mg PO BID #14 tablet 07/24/17 [Rx] Dicyclomine [Bentyl] 10 mg PO QID PRN #40 capsule 07/24/17 [Rx] HYDROcodone/Acet 5/325 mg [[place] 5-325 mg] 1 tab PO Q4H PRN #20 tab 07/24/17 [Rx ] Ondansetron ODT [Zofran ODT] 4 mg SL Q6HR PRN #14 tab.rapdis 07/24/17 [Rx] metroNIDAZOLE [Flagyl] 500 mg PO TID #21 tablet 07/24/17 [Rx] Allergies/Adverse Reactions: 3 Allergy/AdvReac Type Severity Reaction Status Date / Time naproxen Allergy Rash Verified 02/13/17 09:01 Amoxicillin AdvReac Abdominal Verified 02/13/17 09:01 Pain Date of admission: 07/25/17 20:06 Primary care physician: Maria Del Carmen Hernandez MD Discharging clinician: Mayur Garcia Anticipated date of discharge: 07/27/17 - Patient Status Disposition: Home, Self-Care Condition: Good Functional capacity at discharge: independent ambulation Overall status at discharge: patient is progressing back to baseline - Discharge Instructions Instructions: Diverticulitis (DC) Follow Up With: Maria Del Carmen Hernandez MD [Primary Care Provider] - (Your appt has been web requested. The office will call you on Saturday to make an appt. Please call them if they do not call you.) Additional Instructions: Please follow up on referral made for colonoscopy in 2-3 weeks - Diet and Activity Activity: increase activity as tolerated Diet: diabetic diet, low fat, low cholesterol, low salt diet Hospital course: Ms. Oliveira is a 37 year old female patient was admitted here with acute diverticulitis. She had been started on treatment as outpatient but her symptoms continued to worsen and so she was admitted here. She was kept nothing by mouth and treated with intravenous antibiotics. She improved quickly with this treatment plan and is now tolerating diet well. Her pain has significantly improved since admission. She is no longer having any nausea or vomiting. She is clinically stable to be discharged home and will follow up with her primary care provider. She is also advised to follow-up with gastroenterology for colonoscopy as outpatient as this is her second bout of diverticulitis. She will complete antibiotic course with ciprofloxacin and Flagyl. - Time Spent with Patient Total time spent providing and/or coordinating discharge services: Less than 30 minutes (20 min) - Constitutional Vitals: Temp Pulse Resp BP Pulse Ox 98.5 F 77 16 121/80 98 07/27/17 07:35 07/27/17 07:35 07/27/17 07:35 07/27/17 07:35 07/27/17 08:16 General appearance: Present: A&O X 3, obese, answers questions appropriately - Cardiovascular Cardiovascular exam: Present: RRR, +S1, +S2. Absent: diastolic murmur, gallop, rubs, systolic murmur - GI/Abdominal GI/Abdominal exam: Present: normal bowel sounds, soft, tenderness (in lower abdominal quadrants), no peritoneal signs. Absent: distended - Extremities Exam Extremities exam: Present: warm, radial pulses palpable and symmetrical. Absent : calf tenderness, cyanotic, pedal edema - Neurological Exam Neurological exam: Present: alert, oriented X3, no focal deficits. Absent: facial droop, speech deficit - Skin Skin exam: Present: dry, intact
== END 2017-07-27 11:55 | disposition home or self-care (01) | DRG 244 ==
LOC: 3BNU 17:42 → EMEROO 17:42 → SUATTDRO 20:06 → 3BNU 21:05
PROVIDERS: ADMIT Internal Medicine Hematology & Oncology; ATTEND Internal Medicine

== ENCOUNTER 2018-01-04 20:58 | Inpatient (IN) ==
[2018-01-04] MEDS ORDERED: Ondansetron 4 MG/2 ML VIAL IVP ONE (21:15)
[2018-01-04] MEDS ORDERED: 0.9 % Sodium Chloride 1,000 ML IVC ONE (21:15)
--- NOTE | 2018-01-04 21:20 | Emergency Department Note ---
Disposition Clinical Impression: Diverticulitis Disposition: Admitted As Inpatient Condition: Good Referrals: Maria Del Carmen Hernandez MD [Primary Care Provider] - Forms: ED Satisfaction Letter, Work/School Release Abdominal Pain HPI - General Chief Complaint: ED Abdominal Pain Stated Complaint: lower back pain Time Seen by Provider: 01/04/18 21:04 Source: patient Mode of arrival: ambulatory Limitations: no limitations Nursing Notes Reviewed: Yes Vital Signs Reviewed: Yes - History of Present Illness HPI Narrative: Patient presents today for evaluation of left lower quadrant abdominal pain that radiates to her back area and similar to previous diverticulitis episodes. Patient states symptoms started approximately 3 days ago with intermittent pain and loss of appetite. Today the patient had nausea and decreased appetite and decreased ability to tolerate fluids. Patient states she has had associated constipation but has not noticed any blood within her stool. Pain Scale: 8 - Related Data Home Medications Medication Instructions Recorded Confirmed Amlodipine [Norvasc] 5 mg PO DAILY 07/29/15 07/25/17 Insulin ASPART [NovoLOG] 10 unit SQ TIDAC 07/29/15 07/25/17 Metformin HCl [Fortamet] 2,000 mg PO QPM 07/29/15 07/25/17 Ranitidine HCl [Zantac] 150 mg PO BID 07/29/15 07/25/17 Insulin DETEMIR [Levemir] 40 unit SQ HS 02/13/17 07/25/17 Previous Rx's Medication Instructions Recorded Ciprofloxacin [Cipro] 500 mg PO BID #14 tablet 07/24/17 Dicyclomine [Bentyl] 10 mg PO QID PRN #40 capsule 07/24/17 HYDROcodone/Acet 5/325 mg [[place] 1 tab PO Q4H PRN #20 tab 07/24/17 5-325 mg] Ondansetron ODT [Zofran ODT] 4 mg SL Q6HR PRN #14 tab.rapdis 07/24/17 metroNIDAZOLE [Flagyl] 500 mg PO TID #21 tablet 07/24/17 HYDROcodone/Acet 5/325 mg [[place] 1 tab PO Q4H PRN #12 tab 11/17/17 5-325 mg] Ondansetron ODT [Zofran ODT] 4 mg SL Q6HR #12 tab.rapdis 11/17/17 Allergies Allergy/AdvReac Type Severity Reaction Status Date / Time cefdinir Allergy Rash Verified 11/17/17 13:39 naproxen Allergy Rash Verified 11/15/17 16:01 Amoxicillin AdvReac Abdominal Verified 11/15/17 16:01 Pain All systems ED: reviewed and negative except as stated. Constitutional: Denies: fever, chills, weakness Cardiovascular: Denies: chest pain, palpitations, dyspnea on exertion Respiratory: Denies: cough, dyspnea, wheezes Gastrointestinal: Reports: abdominal pain, nausea, constipation. 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 nondistended; no guarding, rebound, or tenderness to percussion; no CVA tenderness Musculoskeletal: Calves symmetric, nontender, no palpable cord Skin: No rash, normal skin tone Neuro: Alert and Oriented to person, place, and time; No focal deficit, CN 2-12 symmetric and intact - General Limitations: no limitations General appearance: alert, in no apparent distress Course - Reevaluation(s) Reevaluation #1: Patient with elevated white count. Uncomplicated diverticulitis. Patient unable to tolerate by mouth challenge. Patient did have previous diverticulitis with outpatient management that failed therapy and required inpatient admission. Patient will be brought in for antibiotics and further management. - Consultations Consultation #1: Discussed with hospitalist, Dr. Rudolph. Patient accepted for admission. Requests blood cultures. Vital Signs Temperature 98.1 F 01/04/18 20:59 Pulse Rate 107 01/04/18 20:59 Respiratory Rate 20 01/04/18 20:59 Blood Pressure 176/124 01/04/18 20:59 O2 Sat by Pulse Oximetry 99 01/04/18 20:59 Temperature 98.1 F 01/04/18 20:59 Pulse Rate 107 01/04/18 20:59 Respiratory Rate 20 01/04/18 20:59 Blood Pressure 176/124 01/04/18 20:59 O2 Sat by Pulse Oximetry 99 01/04/18 20:59 Oxygen Delivery Oxygen Delivery Room Air Abdominal Pain - Lab Data Result diagrams: 01/04/18 21:30 01/04/18 21:30 Lab Results 01/04/18 01/04/18 01/04/18 Range/Units 21:20 21:20 21:30 WBC 18.3 H (4.3-11.1) K/mcL RBC 4.93 (3.82-4.97) M/mcL Hgb 11.8 (11.5-15.4) g/dL Hct 37.1 (35.3-44.9) % MCV 75.3 L (83.0-100.0) fL MCH 23.9 L (28.0-33.3) pg MCHC 31.8 (31.6-35.5) g/dL RDW 15.4 H (11.5-14.5) % Plt Count 336 (140-400) K/mcL MPV 10.6 (9.4-12.4) fL Immature Gran % 0.3 (0-4) % Seg Neutrophils % 80.2 % Lymphocytes % 10.9 % Monocytes % 7.6 % Eosinophils % 0.7 % Basophils % 0.3 % Neutrophils # 14.7 H (1.6-8.9) K/mcL Lymphocytes # 2.0 (0.6-4.6) K/mcL Monocytes # 1.4 H (0.0-1.3) K/mcL Eosinophils # 0.1 (0.0-0.6) K/mcL Basophils # 0.1 (0.0-0.2) K/mcL Sodium (136-145) mEq/L Potassium (3.5-5.1) mEq/L Chloride (98-107) mEq/L Carbon Dioxide (23-29) mEq/L BUN (6-20) mg/dL Creatinine (0.60-1.20) mg/dL Est GFR ( Amer) (> 60) Est GFR (Non-Af Amer) (> 60) BUN/Creatinine Ratio (6-26) Glucose (70-105) mg/dL Calculated Osmolality (280-300) Calcium (8.6-10.3) mg/dL Total Bilirubin (0.3-1.0) mg/dL Direct Bilirubin (0.0-0.2) mg/dL Indirect Bilirubin (0.0-1.2) mg/dL AST (13-39) Units/L ALT (7-52) Units/L Alkaline Phosphatase (34-104) Units/L Serum Total Protein (6.4-8.9) g/dL Albumin (3.5-5.7) g/dL Globulin (2.4-3.5) g/dL Albumin/Globulin Ratio (1.1-2.2) Lipase (11-82) Units/L Urine Color Yellow (Yellow) Urine Clarity Clear (Clear) Urine pH 6.0 (5.0-8.0) pH Units Ur Specific [place] > 1.030 H (1.010-1.025) Urine Protein 100 H (Neg-Trace) mg/dL Urine Glucose (UA) >=1000 H (Normal) mg/dL Urine Ketones Negative (Negative) mg/dL Urine Blood Negative (Negative) Urine Nitrite Negative (Negative) Urine Bilirubin Negative (Negative) Urine Urobilinogen Normal (Normal) mg/dL Ur Leukocyte Esterase Negative (Negative) Urine Microscopic RBC 0-3 (0-3) per hpf Urine Microscopic WBC 5-15 H (0-3) per hpf Ur Squamous Epith Cells Many H (None-Few) per lpf Urine Bacteria None Seen (None-Few) per hpf Hyaline Casts None Seen (None-Few) per lpf Ur Culture Indicated? NO (NO) Urine Test Negative (Negative) 01/04/18 Range/Units 21:30 WBC (4.3-11.1) K/mcL RBC (3.82-4.97) M/mcL Hgb (11.5-15.4) g/dL Hct (35.3-44.9) % MCV (83.0-100.0) fL MCH (28.0-33.3) pg MCHC (31.6-35.5) g/dL RDW (11.5-14.5) % Plt Count (140-400) K/mcL MPV (9.4-12.4) fL Immature Gran % (0-4) % Seg Neutrophils % % Lymphocytes % % Monocytes % % Eosinophils % % Basophils % % Neutrophils # (1.6-8.9) K/mcL Lymphocytes # (0.6-4.6) K/mcL Monocytes # (0.0-1.3) K/mcL Eosinophils # (0.0-0.6) K/mcL Basophils # (0.0-0.2) K/mcL Sodium 137 (136-145) mEq/L Potassium 3.6 (3.5-5.1) mEq/L Chloride 103 (98-107) mEq/L Carbon Dioxide 25 (23-29) mEq/L BUN 12 (6-20) mg/dL Creatinine 0.57 L (0.60-1.20) mg/dL Est GFR ( Amer) > 60 (> 60) Est GFR (Non-Af Amer) > 60 (> 60) BUN/Creatinine Ratio 21 (6-26) Glucose 194 H (70-105) mg/dL Calculated Osmolality 289 (280-300) Calcium 9.4 (8.6-10.3) mg/dL Total Bilirubin 0.2 L (0.3-1.0) mg/dL Direct Bilirubin 0.0 (0.0-0.2) mg/dL Indirect Bilirubin 0.2 (0.0-1.2) mg/dL AST 25 (13-39) Units/L ALT 27 (7-52) Units/L Alkaline Phosphatase 59 (34-104) Units/L Serum Total Protein 7.2 (6.4-8.9) g/dL Albumin 4.2 (3.5-5.7) g/dL Globulin 3.0 (2.4-3.5) g/dL Albumin/Globulin Ratio 1.4 (1.1-2.2) Lipase 19 (11-82) Units/L Urine Color (Yellow) Urine Clarity (Clear) Urine pH (5.0-8.0) pH Units Ur Specific [place] (1.010-1.025) Urine Protein (Neg-Trace) mg/dL Urine Glucose (UA) (Normal) mg/dL Urine Ketones (Negative) mg/dL Urine Blood (Negative) Urine Nitrite (Negative) Urine Bilirubin (Negative) Urine Urobilinogen (Normal) mg/dL Ur Leukocyte Esterase (Negative) Urine Microscopic RBC (0-3) per hpf Urine Microscopic WBC (0-3) per hpf Ur Squamous Epith Cells (None-Few) per lpf Urine Bacteria (None-Few) per hpf Hyaline Casts (None-Few) per lpf Ur Culture Indicated? (NO) Urine Test (Negative) Attestation Statement - Attestation Attestation: I, Christiano Lebron MD, personally evaluated this patient and discussed their management with the resident physician. I reviewed the resident's note and agree with the documented findings, medical decision making, and plan of care. 37-year-old female presents to the emergency department with a complaint of some diffuse lower abdominal pain which is worse in the left lower quadrant. The pain started 3 or 4 days ago and was initially intermittent and crampy. Today the pain is been more constant and more localized to the left lower quadrant. She complains of pressure throughout the lower abdomen and radiation of pain to the lower back. Him diarrhea earlier today but this seems to have resolved. She had a subjective fever last night with some chills and sweats. No melena, hematemesis, or hematochezia. No dysuria or gross hematuria. Patient does have a prior history of diverticulitis with similar symptoms. On examination patient is a well-developed obese female in no acute distress. She is alert and oriented 3. There is no cyanosis or diaphoresis. Breath sounds are clear and equal bilaterally. Heart regular with a mild tachycardia. Abdomen is soft with normal bowel sounds. There is moderate left lower quadrant tenderness on direct palpation. No guarding or rebound tenderness. Mild left CVA tenderness. Labs reviewed. Leukocytosis with WBC of 18.3. CT of the abdomen and pelvis with IV contrast was obtained and shows uncomplicated diverticulitis of the colon. The hospitalist, Dr. Rudolph, was consulted and accepted admission of the patient.
[2018-01-04 21:30] LABS: Bilirubin,Urine Negative (Negative); Blood,Urine Negative (Negative); Clarity,Urine Clear (Clear); Color,Urine Yellow (Yellow); Glucose,Urine (UA) >=1000 mg/dL (Normal); Ketones,Urine Negative (Negative); Leukocyte Esterase,Urine Negative (Negative); Nitrite,Urine Negative (Negative); Protein,Urine 100 mg/dL (Neg-Trace); Specific Gravity,Urine > 1.030 (1.010-1.025); Urobilinogen,Urine Normal (Normal)
[2018-01-04 21:31] LABS: Bacteria,Urine None Seen per hpf (None-Few); Hyaline Casts,Urine None Seen per lpf (None-Few); RBC,Urine 0-3 per hpf (0-3); Squamous Epithelial Cell,Urine Many per lpf (None-Few)
[2018-01-04 21:48] LABS: Basophils # 0.1 K/mcL (0.0-0.2); Basophils % 0.3 %; Eosinophils # 0.1 K/mcL (0.0-0.6); Eosinophils % 0.7 %; Hematocrit 37.1 % (35.3-44.9); Hemoglobin 11.8 g/dL (11.5-15.4); Immature Granulocytes % 0.3 % (0-4); Lymphocytes % 10.9 %; Mean Corpuscular HGB Conc 31.8 g/dL (31.6-35.5); Mean Corpuscular Hemoglobin 23.9 pg (28.0-33.3); Mean Corpuscular Volume 75.3 fL (83.0-100.0); Mean Platelet Volume 10.6 fL (9.4-12.4); Monocytes # 1.4 K/mcL (0.0-1.3); Monocytes % 7.6 %; Neutrophils # 14.7 K/mcL (1.6-8.9); Platelet Count 336 K/mcL (140-400); Red Blood Count 4.93 M/mcL (3.82-4.97); Red Cell Distribution Width 15.4 % (11.5-14.5); Segmented Neutrophils % 80.2 %
[2018-01-04 22:05] LABS: Alanine Aminotransferase 27 Units/L (7-52); Albumin 4.2 g/dL (3.5-5.7); Albumin/Globulin Ratio 1.4 (1.1-2.2); Alkaline Phosphatase 59 Units/L (34-104); Aspartate Amino Transferase 25 Units/L (13-39); BUN/Creatinine Ratio 21 (6-26); Bilirubin,Indirect 0.2 mg/dL (0.0-1.2); Bilirubin,Total 0.2 mg/dL (0.3-1.0); Blood Urea Nitrogen 12 mg/dL (6-20); Calcium 9.4 mg/dL (8.6-10.3); Carbon Dioxide 25 mEq/L (23-29); Chloride 103 mEq/L (98-107); Glucose 194 mg/dL (70-105); Lipase 19 Units/L (11-82); Osmolality,Calculated 289 (280-300); Potassium 3.6 mEq/L (3.5-5.1); Sodium 137 mEq/L (136-145); Total Protein 7.2 g/dL (6.4-8.9); eGFR For African Americans > 60 (> 60); eGFR For Non-African Americans > 60 (> 60)
[2018-01-04] MEDS ORDERED: *HR* OxyCODONE/APAP 10/325 TABLET PO ONE (23:14)
[2018-01-05] MEDS ORDERED: Metoclopramide 10 MG/2 ML VIAL IVP ONE (00:21)
[2018-01-05] MEDS ORDERED: MetroNIDAZOLE 500 MG/100 ML 500 MG/100 ML BAG IVPB ONE (00:41)
[2018-01-05] MEDS ORDERED: 0.9 % Sodium Chloride 1,000 ML IVC ONE (00:44)
[2018-01-05] MEDS ORDERED: Naloxone 0.4 MG/ML INJ IVP PRN (01:58)
[2018-01-05] MEDS ORDERED: Ondansetron 4 MG/2 ML VIAL IVP PRN (02:04)
--- NOTE | 2018-01-05 02:17 | Internal Med History&Physical ---
<Michel Aparicio - Last Filed: 01/05/18 02:07> Date of Encounter: 01/05/18 Time of Encounter: 01:30 Assessment and Plan (1) Sigmoid diverticulitis Current visit: Yes Status: Acute Recurrent uncomplicated diverticulitis Ciprofloxacin and flagyl If there is no improvement, may escalate to zosyn, which has worked for her in the past Consider surgical consult if there is not expedient improvement, given relatively frequent recurrences NPO except medication and sips of water for bowel rest IV Fluids while NPO (2) HTN (hypertension) Current visit: Yes Status: Chronic Elevated into the 170s today, though she believes she may have missed her home antihypertensive Contribution from abdominal pain Will restart home amlodipine Qualifiers: Hypertension type: essential hypertension Qualified Code(s): I10 - Essential (primary) hypertension (3) GERD (gastroesophageal reflux disease) Current visit: Yes Status: Acute Continue home zantac Qualifiers: Esophagitis presence: esophagitis presence not specified Qualified Code(s) : K21.9 - Gastro-esophageal reflux disease without esophagitis (4) Diabetes Current visit: Yes Status: Chronic Glucose elevated on admission Low dose sliding scale, as patient will be NPO When patient starts oral intake, restart home insulin Qualifiers: Diabetes mellitus type: type 2 Diabetes mellitus complication status: without complication 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 Oliveira is a 37 year old female who presents with 3-4 days of lower abdominal pain. Since it began, the pain has changed from intermittent to constant, with a pressure-like quality the occasionally becomes sharp. Its severity is 8/10. The patient has a long history of episodes of diverticulitis, with her last admission for one being in July 2017. She states that this feels very similar to past episodes. Additional symptoms include anorexia, nausea, chills , subjective fever, diarrhea x1 day, and dizziness. She denies vomiting, CP, and SOB. PMH significant for diabetes mellitus type II on insulin, HTN (she believes she missed a dose of amlodipine yesterday), and GERD. She denies a smoking history, significant alcohol use, and illicit drug use. Past Med Surg Social Fam HX - Past Medical History Medical history: diabetes, GERD, hypertension Psychiatric history: no psych history - Past Surgical History Surgical History: cholecystectomy - Social History Smoking Status: Never smoker Smokeless Tobacco Status: No Alcohol use: none Drug use: none - Family History Father Family Member Ethnicity: Unknown Living Status: Still Living Hx Family Cardiac Disorders: Yes (MIs) Hx Family Endocrine Disorder: Yes (diabetic) Internal Medicine - H&P: Meds Amlodipine [Norvasc] 5 mg PO DAILY 07/29/15 [History] Insulin ASPART [NovoLOG] 10 unit SQ TIDAC 07/29/15 [History] Metformin HCl [Fortamet] 2,000 mg PO QPM 07/29/15 [History] Ranitidine HCl [Zantac] 150 mg PO BID 07/29/15 [History] Insulin DETEMIR [Levemir] 40 unit SQ HS 02/13/17 [History] Ciprofloxacin [Cipro] 500 mg PO BID #14 tablet 07/24/17 [Rx] Dicyclomine [Bentyl] 10 mg PO QID PRN #40 capsule 07/24/17 [Rx] HYDROcodone/Acet 5/325 mg [[place] 5-325 mg] 1 tab PO Q4H PRN #20 tab 07/24/17 [Rx ] Ondansetron ODT [Zofran ODT] 4 mg SL Q6HR PRN #14 tab.rapdis 07/24/17 [Rx] metroNIDAZOLE [Flagyl] 500 mg PO TID #21 tablet 07/24/17 [Rx] HYDROcodone/Acet 5/325 mg [[place] 5-325 mg] 1 tab PO Q4H PRN #12 tab 11/17/17 [Rx ] Ondansetron ODT [Zofran ODT] 4 mg SL Q6HR #12 tab.rapdis 11/17/17 [Rx] 3 Allergy/AdvReac Type Severity Reaction Status Date / Time cefdinir Allergy Rash Verified 11/17/17 13:39 naproxen Allergy Rash Verified 11/15/17 16:01 Amoxicillin AdvReac Abdominal Verified 11/15/17 16:01 Pain All Systems PM: A 10-system review of systems was performed and is negative for pertinent findings except as documented above in the HPI. Review of systems: As per HPI - Constitutional Vitals: Temp Pulse Resp BP Pulse Ox 98.9 F 72 16 145/83 98 01/05/18 01:32 01/05/18 01:32 01/05/18 01:32 01/05/18 01:32 01/05/18 01:32 General appearance: Present: cooperative, A&O X 3, pleasant, obese, answers questions appropriately - Head Head exam: Present: atraumatic, normal inspection, normocephalic - ENT ENT exam: Present: mucous membranes moist - Neck Neck exam general surgery: Present: trachea midline - Respiratory Respiratory exam: Present: CTAB. Absent: accessory muscle use, respiratory distress - Cardiovascular Cardiovascular exam: Present: RRR, +S1, +S2 - GI/Abdominal GI/Abdominal exam: Present: normal bowel sounds, soft, tenderness (lower midline with radiation to LLQ and back), no peritoneal signs. Absent: distended , guarding, rebound - Extremities Exam Extremities exam: Absent: pedal edema - Psychiatric Psychiatric exam: Present: normal affect, normal mood. Absent: agitated, anxious - Skin Skin exam: Present: dry, warm Internal Med - H&P Results - Labs CBC & Chem 7: 01/04/18 21:30 01/04/18 21:30 <Tree Rudolph - Last Filed: 01/05/18 04:52> Date of Encounter: 01/05/18 Time of Encounter: 04:39 - Constitutional Constitutional: chills, fever(s), no night sweats - EENT Eyes: no change in vision - Cardiovascular Cardiovascular ROS IM: no chest pain, no diaphoresis, no dyspnea - Respiratory Respiratory: no cough, no chest congestion, no excessive phlegm production - Gastrointestinal Gastrointestinal: abdominal pain, diarrhea, nausea, no hematemesis, no hematochezia - Genitourinary Genitourinary: no dysuria, no flank pain, no hematuria - Musculoskeletal Musculoskeletal ROS IM: no arthralgias, no back pain - Integumentary Integumentary IM: no rash, no jaundice - Neurological Neurological ROS: no disequilibrium, no dizziness, no focal weakness, no frequent falls - Psychiatric Psychiatric: no anxiety, no depression - Endocrine Endocrine IM: no polydipsia, no polyuria - Allergic/Immunologic Allergic/Immunologic: GI upset with certain foods - Constitutional Vitals: Temp Pulse Resp BP Pulse Ox 98.9 F 72 16 145/83 98 01/05/18 01:32 01/05/18 01:32 01/05/18 01:32 01/05/18 01:32 01/05/18 01:32 General appearance: Present: cooperative, A&O X 3, pleasant - Eye Eye exam: Present: PERRL. Absent: scleral icterus - Neck Neck exam general surgery: Present: supple - Respiratory Respiratory exam: Present: CTAB. Absent: rales, rhonchi, wheezes - Cardiovascular Cardiovascular exam: Present: RRR, +S1, +S2 - GI/Abdominal GI/Abdominal exam: Present: normal bowel sounds, soft, tenderness (mostly LLQ), no peritoneal signs. Absent: guarding, hepatomegaly, mass, rebound, splenomegaly - Extremities Exam Extremities exam: Present: full ROM, warm, radial pulses palpable and symmetrical. Absent: calf tenderness, pedal edema - Neurological Exam Neurological exam: Present: alert, oriented X3, no focal deficits - Psychiatric Psychiatric exam: Present: normal affect, normal mood - Skin Skin exam: Present: dry, warm. Absent: rash Internal Med - H&P Results - Labs CBC & Chem 7: 01/04/18 21:30 01/04/18 21:30 - Diagnostic Studies CT scan - abdomen Status: image reviewed by me (Sigmoid diverticulitis) - Attending Attestation I discussed patient [place], PMH, ROS, lab data, and exam findings with Dr. Aparicio. I then saw and examined patient independently as well. Patient reports that this is her second hospitalization for diverticulitis, but she has had others that were treated as outpatient. She has never seen a surgeon and has never had colonoscopy. I discussed with her at length that if she is having more frequent and more severe episodes of diverticulitis, she may consider seeing a surgeon in consultation to consider sigmoid colon resection electively. However, at this time, I do not recommend it unless her current illness fails to improve and/or if she has a complicated course. I agree with the conservative measures initiated by Dr. Aparicio. I anticipate she will improve and advance from npo to a diet soon. However, for now we will keep her npo and continue IV antibiotics. Further labs and exams will dictate when we can feed her. Patient voiced understanding and agreement. Other than my comments above and noted exam findings, I agree with Dr. Aparicio' s assessment and plan.
[2018-01-05] MEDS ORDERED: 0.9 % Sodium Chloride 1,000 ML IVC SCH ×2 (04:00→12:42)
[2018-01-05] MEDS ORDERED: D5% in Water 1,000 ML IVC PRN (04:03)
[2018-01-05] MEDS ORDERED: *HR* Dextrose 50 % in Water (Syg) 50 ML SYRINGE IVP PRN (04:03)
[2018-01-05] MEDS ORDERED: Dextrose Gel 15 GM/37.5 ML TUBE PO PRN ×2 (04:03)
[2018-01-05] MEDS: *HR* HYDROcodone/Acet 5/325 mg TABLET PO PRN ×3 (04:56→23:05)
[2018-01-05] MEDS: *HR* Heparin 5,000 UNIT/ML VIAL SQ SCH ×2 (04:56→16:43)
[2018-01-05] MEDS: Insulin LISPRO 300 UNITS/3 ML VIAL SQ SCH ×4 (05:05→23:35)
[2018-01-05] MEDS: MetroNIDAZOLE 500 MG/100 ML 500 MG/100 ML BAG IVPB SCH ×3 (07:25→23:05)
[2018-01-05] MEDS: amLODIPine 5 MG TABLET PO SCH (07:28)
[2018-01-05] MEDS: Famotidine 20 MG TABLET PO SCH ×2 (07:29→20:45)
--- NOTE | 2018-01-05 11:36 | Internal Med Progress Note ---
<Serg Moore - Last Filed: 01/05/18 11:40> Date of Encounter: 01/05/18 Time of Encounter: 11:30 - Assessment and plan (1) Diverticulitis Current Visit: Yes Status: Acute Assessment and plan: The patient has history of acute recurrent diverticulitis. CT of abdomen confirm acute uncomplicated sigmoid colonic diverticulitis. She reports improvement of symptoms today. Continue with Ciprofloxacin, metronidazole day #1. Continue IV fluids. Continue bowel rest with nothing by mouth except ice chips and by mouth medications. Will consider starting patient on soft diet if symptoms continue to improve. (2) HTN (hypertension) Current Visit: No Status: Chronic Assessment and plan: Patient's systolic blood pressure ranging from 130s to 150s today but is symptomatic. Continue with home medications Norvasc 5 mg by mouth daily. Hydralazine 10 mg when necessary for systolic blood pressure greater than 160 Qualifiers: Hypertension type: essential hypertension Qualified Code(s): I10 - Essential (primary) hypertension (3) GERD (gastroesophageal reflux disease) Current Visit: No Status: Acute Assessment and plan: Continue home medications Zantac Qualifiers: Esophagitis presence: esophagitis presence not specified Qualified Code(s) : K21.9 - Gastro-esophageal reflux disease without esophagitis (4) Diabetes Current Visit: No Status: Chronic Assessment and plan: Continue SSI and monitor with a.m. labs Qualifiers: Diabetes mellitus type: type 2 Diabetes mellitus complication status: without complication Diabetes mellitus extermination inspector insulin use: with correction use Qualified Code(s): E11.9 - Type 2 diabetes mellitus without complications ; Z79.4 - [facility] (current) use of insulin (5) DVT prophylaxis Current Visit: Yes Status: Acute Assessment and plan: Continue heparin for DVT prophylaxis - Time Spent With Patient 25 - 35 minutes - Subjective Interval history: 37-year-old female with past medical history of diabetes type 2 on insulin, hypertension, GERD, colitis, diverticulitis, hypertension, miscarriage, cholecystectomy presents for left lower quadrant abdominal pain that radiates to her back which feels similar to her previous hospitalization for diverticulitis. She states that the symptoms started approximately 3 days ago with intermittent pain and loss of appetite. She also complained of nausea, decreased appetite, and decreased ability is tolerating fluids on admission. Her last bowel movement was 01/04/18 in the morning. She reports her bowel movement was poorly formed. Last admission for diverticulitis was in July 2017. At ED, CT demonstrates acute uncomplicated sigmoid colonic diverticulitis. She was started on Levaquin and ciprofloxacin, and NPO for bowel rest. Today, she reports improvement of abdominal pain currently 6 out of 10, still reports anorexia. She denies alcohol intake. Denies fever, chills , nausea, chest pain, shortness of breath, vomiting. She is requesting ice chips. No further complaints at this time. - Constitutional Vitals: Temp Pulse Resp BP Pulse Ox 97.4 F L 84 16 153/90 96 01/05/18 07:50 01/05/18 07:50 01/05/18 07:50 01/05/18 07:50 01/05/18 07:50 General appearance: Present: cooperative, A&O X 3, pleasant, obese - Head Head exam: Present: atraumatic, normocephalic - Eye Eye exam: Present: PERRL, conjuntiva pink, sclera anicteric Pupils: Present: PERRL - Neck Neck exam general surgery: Present: supple, trachea midline. Absent: lymphadenopathy - Respiratory Respiratory exam: Present: CTAB. Absent: accessory muscle use, rales, rhonchi, wheezes - Cardiovascular Cardiovascular exam: Present: RRR, +S1, +S2. Absent: diastolic murmur, gallop, rubs, systolic murmur - GI/Abdominal GI/Abdominal exam: Present: hypoactive bowel sounds, soft, no peritoneal signs. Absent: distended, tenderness - Extremities Exam Extremities exam: Present: warm, radial pulses palpable and symmetrical. Absent : calf tenderness, cyanotic, pedal edema - Neurological Exam Neurological exam: Present: CN II-XII intact, oriented X3, no focal deficits. Absent: pronater drift, facial droop, speech deficit - Skin Skin exam: Present: dry, intact Internal Medicine: Result - Labs CBC & Chem 7: 01/04/18 21:30 01/04/18 21:30 Consult Discharge Plan - Plan Referrals: Maria Del Carmen Hernandez MD [Primary Care Provider] - <Sandeep Guillen - Last Filed: 01/05/18 12:49> Date of Encounter: 01/05/18 - Constitutional Vitals: Temp Pulse Resp BP Pulse Ox 97.4 F L 84 16 153/90 96 02/04/18 07:50 01/05/18 07:50 01/05/18 07:50 01/05/18 07:50 01/05/18 07:50 Internal Medicine: Result - Labs CBC & Chem 7: 01/05/18 11:28 01/05/18 11:28 Labs: Short CBC 01/05/18 Range/Units 11:28 WBC 5.9 D (4.3-11.1) K/mcL Hgb 10.5 L (11.5-15.4) g/dL Hct 34.1 L (35.3-44.9) % Plt Count 278 (140-400) K/mcL Neutrophils # 4.2 (1.6-8.9) K/mcL BMP 01/05/18 11:28 Sodium 133 L Potassium 3.2 L Chloride 101 Carbon Dioxide 26 BUN 8 Creatinine 0.58 L Glucose 174 H Calcium 8.2 L - Attending Attestation Sepsis secondary to Acute sigmoid diverticulitis Heart was 107 and was unable cell count was 18 Nothing by mouth, increase IV fluids to normal saline with 10 medical and social potassium at 175 mL/h Continue ciprofloxacin and Flagyl IV Hypokalemia, added potassium to the IV fluids Diabetes, continue insulin sliding scale Dehydration Leukocytosis is improving I examined this patient and my medical decision-making was reviewed with the Resident Physician. I agree with the documented findings, disposition and treatment plan as described except to the extent set forth below.
[2018-01-05 11:43] LABS: Basophils % 0.5 %; Eosinophils # 0.1 K/mcL (0.0-0.6); Hematocrit 34.1 % (35.3-44.9); Hemoglobin 10.5 g/dL (11.5-15.4); Immature Granulocytes % 0.3 % (0-4); Immature Platelets 4.6 % (1.1-6.1); Lymphocytes # 1.1 K/mcL (0.6-4.6); Lymphocytes % 17.9 %; Mean Corpuscular HGB Conc 30.8 g/dL (31.6-35.5); Mean Corpuscular Volume 77.9 fL (83.0-100.0); Mean Platelet Volume 10.7 fL (9.4-12.4); Monocytes # 0.5 K/mcL (0.0-1.3); Monocytes % 9.1 %; Neutrophils # 4.2 K/mcL (1.6-8.9); Platelet Count 278 K/mcL (140-400); Red Blood Count 4.38 M/mcL (3.82-4.97); Red Cell Distribution Width 15.3 % (11.5-14.5); Segmented Neutrophils % 71.2 %
[2018-01-05] MEDS ORDERED: hydrALAZINE 10 MG TABLET PO PRN (11:58)
[2018-01-05 12:00] LABS: BUN/Creatinine Ratio 14 (6-26); Blood Urea Nitrogen 8 mg/dL (6-20); Calcium 8.2 mg/dL (8.6-10.3); Carbon Dioxide 26 mEq/L (23-29); Chloride 101 mEq/L (98-107); Glucose 174 mg/dL (70-105); Osmolality,Calculated 279 (280-300); Potassium 3.2 mEq/L (3.5-5.1); Sodium 133 mEq/L (136-145); eGFR For African Americans > 60 (> 60); eGFR For Non-African Americans > 60 (> 60)
[2018-01-05] MEDS: Acetaminophen 325 MG TABLET PO PRN (15:04)
[2018-01-05] MEDS ORDERED: Acetaminophen/Aspirin/Caffeine TABLET PO PRN (16:25)
[2018-01-06] MEDS: Insulin LISPRO 300 UNITS/3 ML VIAL SQ SCH ×3 (05:39→17:27)
[2018-01-06] MEDS: *HR* Heparin 5,000 UNIT/ML VIAL SQ SCH ×2 (05:42→17:27)
[2018-01-06 06:50] LABS: Basophils % 0.5 %; Eosinophils # 0.1 K/mcL (0.0-0.6); Eosinophils % 1.6 %; Hematocrit 34.9 % (35.3-44.9); Hemoglobin 10.8 g/dL (11.5-15.4); Immature Granulocytes % 0.5 % (0-4); Lymphocytes # 1.7 K/mcL (0.6-4.6); Lymphocytes % 30.3 %; Mean Corpuscular HGB Conc 30.9 g/dL (31.6-35.5); Mean Corpuscular Hemoglobin 23.7 pg (28.0-33.3); Mean Corpuscular Volume 76.7 fL (83.0-100.0); Mean Platelet Volume 11.1 fL (9.4-12.4); Monocytes # 0.6 K/mcL (0.0-1.3); Monocytes % 9.9 %; Neutrophils # 3.3 K/mcL (1.6-8.9); Platelet Count 283 K/mcL (140-400); Red Blood Count 4.55 M/mcL (3.82-4.97); Red Cell Distribution Width 15.2 % (11.5-14.5); Segmented Neutrophils % 57.2 %
[2018-01-06 07:03] LABS: BUN/Creatinine Ratio 10 (6-26); Blood Urea Nitrogen 5 mg/dL (6-20); Calcium 8.5 mg/dL (8.6-10.3); Carbon Dioxide 24 mEq/L (23-29); Chloride 105 mEq/L (98-107); Glucose 144 mg/dL (70-105); Osmolality,Calculated 282 (280-300); Potassium 3.5 mEq/L (3.5-5.1); Sodium 136 mEq/L (136-145); eGFR For African Americans > 60 (> 60); eGFR For Non-African Americans > 60 (> 60)
[2018-01-06] MEDS: amLODIPine 5 MG TABLET PO SCH (07:54)
[2018-01-06] MEDS: Famotidine 20 MG TABLET PO SCH ×2 (07:54→21:37)
[2018-01-06] MEDS: MetroNIDAZOLE 500 MG/100 ML 500 MG/100 ML BAG IVPB SCH ×3 (07:55→23:19)
--- NOTE | 2018-01-06 09:50 | Internal Med Progress Note ---
<Serg Moore - Last Filed: 01/06/18 10:47> Date of Encounter: 01/06/18 Time of Encounter: 10:30 - Assessment and plan (1) Acute diverticulitis Current Visit: Yes Status: Acute Assessment and plan: The patient has history of acute recurrent diverticulitis. CT of abdomen confirm acute uncomplicated sigmoid colonic diverticulitis. She reports improvement of symptoms today and is tolerating clear liquid diet. Discontinue IV fluids. Continue with Ciprofloxacin, metronidazole day #2. Advanced diet to soft chopped meat at lunchtime. Plan for discharge when patient has normal BM. (2) HTN (hypertension) Current Visit: No Status: Chronic Assessment and plan: Patient's systolic blood pressure 150s today but is asymptomatic. Continue with home medications Norvasc 5 mg by mouth daily. Hydralazine 10 mg when necessary for systolic blood pressure greater than 160 Qualifiers: Hypertension type: essential hypertension Qualified Code(s): I10 - Essential (primary) hypertension (3) GERD (gastroesophageal reflux disease) Current Visit: No Status: Acute Assessment and plan: Continue home medications Zantac Qualifiers: Esophagitis presence: esophagitis presence not specified Qualified Code(s) : K21.9 - Gastro-esophageal reflux disease without esophagitis (4) Diabetes Current Visit: No Status: Chronic Assessment and plan: Continue SSI and monitor with a.m. labs Qualifiers: Diabetes mellitus type: type 2 Diabetes mellitus complication status: without complication Diabetes mellitus extermination inspector insulin use: with extermination inspector use Qualified Code(s): E11.9 - Type 2 diabetes mellitus without complications ; Z79.4 - long term care administrator (current) use of insulin; Z79.4 - skilled nursing (current) use of insulin; Z79.4 - long term care administrator (current) use of insulin; Z79.4 - skilled nursing ( current) use of insulin (5) DVT prophylaxis Current Visit: Yes Status: Acute Assessment and plan: Continue heparin for DVT prophylaxis - Time Spent With Patient Greater than 35 minutes - Subjective Interval history: 37-year-old female with past medical history of diabetes type 2 on insulin, hypertension, GERD, colitis, diverticulitis, hypertension, miscarriage, cholecystectomy presents for left lower quadrant abdominal pain that radiates to her back which feels similar to her previous hospitalization for diverticulitis. She states that the symptoms started approximately 3 days ago with intermittent pain and loss of appetite. She also complained of nausea, decreased appetite, and decreased ability is tolerating fluids on admission. Her last bowel movement was 01/04/18 in the morning. She reports her bowel movement was poorly formed. Last admission for diverticulitis was in July 2017. At ED, CT demonstrates acute uncomplicated sigmoid colonic diverticulitis. She was started on Levaquin and ciprofloxacin. Today, she reports improvement of abdominal pain currently 4 out of 10 and requests for discontinuation of IVF since she is tolerating PO intake. She still has not had a bowel movement but reports that she is passing gas. Reports improvement in appetite and would like solid food. Denies fever, chills, nausea, chest pain , shortness of breath, vomiting. No further complaints at this time. - Constitutional Vitals: Temp Pulse Resp BP Pulse Ox 98.0 F 82 14 152/88 95 01/06/18 06:49 01/06/18 06:49 01/06/18 06:49 01/06/18 06:49 01/06/18 06:49 General appearance: Present: cooperative, A&O X 3, pleasant, obese - Head Head exam: Present: atraumatic, normocephalic - Eye Eye exam: Present: PERRL, conjuntiva pink, sclera anicteric Pupils: Present: PERRL - Neck Neck exam general surgery: Present: supple, trachea midline. Absent: lymphadenopathy - Respiratory Respiratory exam: Present: CTAB. Absent: accessory muscle use, rales, rhonchi, wheezes - Cardiovascular Cardiovascular exam: Present: RRR, +S1, +S2. Absent: diastolic murmur, gallop, rubs, systolic murmur - GI/Abdominal GI/Abdominal exam: Present: normal bowel sounds, soft, no peritoneal signs. Absent: distended, tenderness Additional comments: LLQ tenderness. - Extremities Exam Extremities exam: Present: warm, radial pulses palpable and symmetrical. Absent : calf tenderness, cyanotic, pedal edema - Neurological Exam Neurological exam: Present: CN II-XII intact, oriented X3, no focal deficits. Absent: pronater drift, facial droop, speech deficit - Skin Skin exam: Present: dry, intact Internal Medicine: Result - Labs CBC & Chem 7: 01/06/18 06:02 01/06/18 06:02 Labs: Short CBC 01/05/18 01/06/18 Range/Units 11:28 06:02 WBC 5.9 D 5.8 (4.3-11.1) K/mcL Hgb 10.5 L 10.8 L (11.5-15.4) g/dL Hct 34.1 L 34.9 L (35.3-44.9) % Plt Count 278 283 (140-400) K/mcL Neutrophils # 4.2 3.3 (1.6-8.9) K/mcL [facility] 01/05/18 01/06/18 11:28 06:02 Sodium 133 L 136 Potassium 3.2 L 3.5 Chloride 101 105 Carbon Dioxide 26 24 BUN 8 5 L Creatinine 0.58 L 0.49 L Glucose 174 H 144 H Calcium 8.2 L 8.5 L Consult Discharge Plan - Plan Referrals: Maria Del Carmen Hernandez MD [Primary Care Provider] - <Sandeep Guillen H - Last Filed: 01/06/18 11:15> Date of Encounter: 01/06/18 - Constitutional Vitals: Temp Pulse Resp BP Pulse Ox 97.5 F L 84 15 153/95 98 01/06/18 10:20 01/06/18 10:20 01/06/18 10:20 01/06/18 10:20 01/06/18 10:20 Internal Medicine: Result - Labs CBC & Chem 7: 01/06/18 06:02 01/06/18 06:02 Labs: Short CBC 01/05/18 01/06/18 Range/Units 11:28 06:02 WBC 5.9 D 5.8 (4.3-11.1) K/mcL Hgb 10.5 L 10.8 L (11.5-15.4) g/dL Hct 34.1 L 34.9 L (35.3-44.9) % Plt Count 278 283 (140-400) K/mcL Neutrophils # 4.2 3.3 (1.6-8.9) K/mcL BMP 01/05/18 01/06/18 11:28 06:02 Sodium 133 L 136 Potassium 3.2 L 3.5 Chloride 101 105 Carbon Dioxide 26 24 BUN 8 5 L Creatinine 0.58 L 0.49 L Glucose 174 H 144 H Calcium 8.2 L 8.5 L - Attending Attestation Sepsis secondary to Acute sigmoid diverticulitis Heart was 107 and was unable cell count was 18 May try diet be feeling better , may continue IV fluids not tolerating diet Continue ciprofloxacin and Flagyl IV Hypokalemia Diabetes, continue insulin sliding scale Dehydration Leukocytosis Consider discharging in the morning if feeling better I examined this patient and my medical decision-making was reviewed with the Resident Physician. I agree with the documented findings, disposition and treatment plan as described except to the extent set forth below.
[2018-01-06] MEDS: Acetaminophen 325 MG TABLET PO PRN (19:13)
[2018-01-06] MEDS ORDERED: Insulin LISPRO 300 UNITS/3 ML VIAL SQ SCH (21:00)
[2018-01-07] MEDS: *HR* Heparin 5,000 UNIT/ML VIAL SQ SCH (05:39)
[2018-01-07 07:56] VITALS: BP 150/92
[2018-01-07] MEDS: MetroNIDAZOLE 500 MG/100 ML 500 MG/100 ML BAG IVPB SCH (08:39)
[2018-01-07] MEDS: amLODIPine 5 MG TABLET PO SCH (08:39)
[2018-01-07] MEDS: Famotidine 20 MG TABLET PO SCH (08:39)
[2018-01-07] MEDS: Insulin LISPRO 300 UNITS/3 ML VIAL SQ SCH (08:40)
--- NOTE | 2018-01-07 10:07 | Discharge Summary ---
<MooreSerg - Last Filed: 01/07/18 11:05> Date of Encounter: 01/07/18 Time of Encounter: 10:05 - Discharge Diagnosis (1) Sepsis Priority: Primary Status: Acute Comments: Resolved. Sepsis secondary to acute sigmoid diverticulitis. Heart rate 107 and unstable white cell count at 18 on admission. Qualifiers: Qualified Code(s): A41.9 - Sepsis, unspecified organism (2) Acute diverticulitis Priority: Primary Status: Acute (3) HTN (hypertension) Priority: Secondary Status: Chronic Qualifiers: Hypertension type: essential hypertension Qualified Code(s): I10 - Essential (primary) hypertension (4) GERD (gastroesophageal reflux disease) Priority: Secondary Status: Acute Qualifiers: Esophagitis presence: esophagitis presence not specified Qualified Code(s) : K21.9 - Gastro-esophageal reflux disease without esophagitis (5) Diabetes Priority: Secondary Status: Chronic Qualifiers: Diabetes mellitus type: type 2 Diabetes mellitus complication status: without complication Diabetes mellitus salvage determiner insulin use: with salvage determiner use Qualified Code(s): E11.9 - Type 2 diabetes mellitus without complications ; Z79.4 - care home (current) use of insulin; Z79.4 - superintendent terminal (current) use of insulin; Z79.4 - superintendent terminal (current) use of insulin; Z79.4 - superintendent terminal ( current) use of insulin - Discharge Medications Prescriptions: Ciprofloxacin [Cipro] 500 mg PO BID 4 Days #8 tablet metroNIDAZOLE [Flagyl] 500 mg PO TID 4 Days #12 tablet Home Medications: Insulin ASPART [NovoLOG] 10 unit SQ TIDAC 07/29/15 [History] Metformin HCl [Fortamet] 2,000 mg PO QPM 07/29/15 [History] Ranitidine HCl [Zantac] 150 mg PO BID 07/29/15 [History] Insulin DETEMIR [Levemir] 40 unit SQ HS 02/13/17 [History] amLODIPine [Norvasc] 5 mg PO DAILY 01/06/18 [History] Ciprofloxacin [Cipro] 500 mg PO BID 4 Days #8 tablet 01/07/18 [Rx] metroNIDAZOLE [Flagyl] 500 mg PO TID 4 Days #12 tablet 01/07/18 [Rx] Allergies/Adverse Reactions: 3 Allergy/AdvReac Type Severity Reaction Status Date / Time cefdinir Allergy Rash Verified 11/17/17 13:39 naproxen Allergy Rash Verified 11/15/17 16:01 Amoxicillin AdvReac Abdominal Verified 11/15/17 16:01 Pain Date of admission: 01/05/18 04:53 Primary care physician: Maria Del Carmen Hernandez MD Discharging clinician: Serg Moore Anticipated date of discharge: 01/07/18 - Patient Status Disposition: Home, Self-Care Condition: Good Functional capacity at discharge: independent ambulation Overall status at discharge: patient is back to baseline - Discharge Instructions Instructions: Diverticulitis (DC), Diverticulitis (GEN) Follow Up With: Maria Del Carmen Hernandez MD [Primary Care Provider] - 01/17/18 9:45 am Forms: Inpatient Work/School Release - Diet and Activity Diet: advance to your usual diet, diabetic diet Hospital course: Ms. Oliveira is a 38 year old female with past medical history of diabetes type 2 on insulin, hypertension, GERD, colitis, acute diverticulitis, hypertension, miscarriage, cholecystectomy presents for left lower quadrant abdominal pain that radiates to her back similar to previous episode of acute diverticulitis. On admission, she states that the symptoms started approximately 3 days ago with intermittent pain and loss of appetite. She had complaints of nausea, decreased appetite, decreased ability of tolerating fluids. CT demonstrated acute uncomfortable sigmoid colonic diverticulitis. The patient was started on Levaquin and ciprofloxacin and On nothing by mouth for bowel rest. She experienced improvement of symptoms. Today, she reports abdominal pain has resolved. She denies fever, chills, nausea, chest pain, shortness of breath, vomiting. She does report 2 episodes of loose stools after starting soft diet, but reports that it is improving. She has no further complaints at this time. Plan to discharge patient with Flagyl 500 mg 3 times a day for 4 more days and Cipro 500 mg twice a day for 4 more days. Follow-up with outpatient PCP in regards to recurrent acute diverticulitis. Patient demonstrates understanding and is agreeable with treatment plan. - Time Spent with Patient Total time spent providing and/or coordinating discharge services: Greater than 30 minutes - Constitutional Vitals: Temp Pulse Resp BP Pulse Ox 98.4 F 78 16 150/92 96 01/07/18 07:49 01/07/18 07:49 01/07/18 07:49 01/07/18 07:49 01/07/18 07:49 General appearance: Present: cooperative, A&O X 3, pleasant, obese - Head Head exam: Present: atraumatic, normocephalic - Eye Eye exam: Present: PERRL, conjuntiva pink, sclera anicteric Pupils: Present: PERRL - Neck Neck exam general surgery: Present: supple, trachea midline. Absent: lymphadenopathy - Respiratory Respiratory exam: Present: CTAB. Absent: accessory muscle use, rales, rhonchi, wheezes - Cardiovascular Cardiovascular exam: Present: RRR, +S1, +S2. Absent: diastolic murmur, gallop, rubs, systolic murmur - GI/Abdominal GI/Abdominal exam: Present: normal bowel sounds, soft, no peritoneal signs. Absent: distended, tenderness - Extremities Exam Extremities exam: Present: warm, radial pulses palpable and symmetrical. Absent : calf tenderness, cyanotic, pedal edema - Neurological Exam Neurological exam: Present: CN II-XII intact, oriented X3, no focal deficits. Absent: pronater drift, facial droop, speech deficit - Skin Skin exam: Present: dry, intact <Ishola,Shekhar T - Last Filed: 01/07/18 14:58> Date of Encounter: 01/07/18 Date of admission: 01/05/18 04:53 Primary care physician: Maria Del Carmen Hernandez MD Hospital course: Ms. Oliveira is a 38 year old female - Time Spent with Patient Total time spent providing and/or coordinating discharge services: - Constitutional Vitals: Temp Pulse Resp BP Pulse Ox 98.4 F 78 16 150/92 96 01/07/18 07:49 01/07/18 07:49 01/07/18 07:49 01/07/18 07:49 01/07/18 07:49 - Attending Attestation I examined this patient and my medical decision-making was reviewed with the Resident Physician. I agree with the documented findings, disposition and treatment plan as described except to the extent set forth below. Seen and evaluated at bedside Diverticulitis has improved, tolerating po, ambulatory, afebrile, agree with plan Educated on need for colonoscopy within 6-8 weeks, follow up with PCP. DM is controlled Rest as in resident physician's documentation
== END 2018-01-07 12:56 | disposition home or self-care (01) | DRG 720 ==
LOC: 3ANU 20:58 → EMEROO 20:58 → 3ANU 01-05 01:17 → SUATTDRO 01-05 04:53
PROVIDERS: ADMIT Pediatrics; ATTEND Internal Medicine